=== PATIENT | male | born 1950 | race Caucasian/White ===

== ENCOUNTER 2016-05-27 11:29 | Emergency (ER) | payer MEDICARE ==
[~2016-05-27] VITALS: Ht 182.9 cm; Wt 110.0 kg
[~2016-05-27 11:29] MED LIST: COUM5TAB PO; LOTE20TA3 PO; ROSU5 PO; [UNRECOGNIZED DRUG - CODE] PO
[2016-05-27 11:47] VITALS: BP 173/87; PULSE 63; RESP 18; TEMP 97.7; O2SAT 97
[2016-05-27] MEDS ORDERED: CYCL1TAB29 PO (11:54)
[2016-05-27] MEDS ORDERED: PRED1 PO (11:54)
[2016-05-27] MEDS ORDERED: ATEN50TA7 PO (11:54)
[2016-05-27] MEDS ORDERED: LISI-519 PO (11:54)
[2016-05-27] MEDS ORDERED: WARF4TAB51 PO (11:54)
[2016-05-27] MEDS ORDERED: HYDROmorphone HCL PF 1 MG/ML VIAL IV PUSH ONE (12:00)
[2016-05-27] MEDS ORDERED: KETOROLAC TROMETHAMINE 30 MG/ML (IVP) VIAL IV PUSH ONE (12:00)
[2016-05-27] MEDS ORDERED: ONDANSETRON HCL 4 MG/2 ML VIAL IV PUSH ONE (12:00)
[2016-05-27] MEDS ORDERED: DEXAMETHASONE SOD PHOS 20 MG/5 ML VIAL IV PUSH ONE (12:00)
--- NOTE | 2016-05-27 12:19 | PD ---
HPI Chief Complaint: Back/ Neck Pain or Injury Time Seen by Provider: 12:15 Travel History International Travel<30 days: No Contact w/Intl Traveler<30days: No Traveled to known affect area: No History of Present Illness HPI 65-year-old male that presents to the ED for evaluation of lower back pain and muscle spasms. Per patient she's had this pain before. Per patient he hasn't had it for years. Per patient he was doing some work at home and it started gradually. Per patient is becoming more severe for the past couple of days. Per patient and Saturday he was so severe he had to go to an urgent care to get evaluated. Patient was given muscle relaxant as well as prednisone and states that he was hoping that he would get better but he has not. Per patient today became more severe. The patient any cough or movement causes the pain to be more severe. Denies any urinary or bowel movement issues. He does have a history of surgery to the lower back on his 30s and 40s. He denies any recent fall or injury. No radiation of the pain. Per patient the pain is most severe when it comes in spasms. Per patient it comes and goes. She denies any nausea or vomiting. No abdominal discomfort. No recent surgeries on his back. Per patient the pain at the moment is 10 out of 10 and he states that he normally has been worsening. PFSH Past Medical History Atrial Fibrillation: Yes High Cholesterol: Yes Diminished Hearing: No Hypertension: Yes Musculoskeletal: Yes (BACK PAIN) Tetanus Vaccination: > 5 Years Influenza Vaccination: Yes Past Surgical History Abdominal Surgery: Yes (HERNIA REPAIR) Cardiac Surgery: Yes (PACEMAKER) Pacemaker: Yes (1688TC/[address]) Social History Alcohol Use: Yes (4 X WEEK) Tobacco Use: No Substance Use: No Allergies-Medications (Allergen,Severity, Reaction): Coded Allergies: No Known Allergies (Verified , 05/27/16) Reported Meds & Prescriptions Reported Meds & Active Scripts Active Diclofenac Sodium DR (Diclofenac Sodium) 75 Mg Tabdr 75 Mg PO BID PRN Lortab (Hydrocodone-Acetaminophen) 5-325 Mg Tab 1 Tab PO Q6H PRN Robaxin (Methocarbamol) 750 Mg Tab 750 Mg PO QID PRN Reported Prednisone 1 Mg Tab 4 Mg PO DIRECTED Flexeril (Cyclobenzaprine HCl) 10 Mg Tab 10 Mg PO TID Atenolol-Chlorthalidone 50-25 Mg Tab 1 Tab PO DAILY Lisinopril 5 Mg Tab 5 Mg PO DAILY Warfarin 2 Mg Tab 2 Mg PO DAILY Review of Systems General / Constitutional: No: Fever, Chills, Weight Gain, Weight Loss, Other Eyes: No: Diploplia, Blurred Vision, Photophobia, Drainage, Redness, Foreign Body Sensation, Pain, Tearing, Blind Spots, Visual changes, Blindness, Other HENT: No: Headaches, Vertigo, Lightheadedness, Sore Throat, Rhinitis, Rhinorrhea, Congestion, Nosebleed, Neck Stiffness, Neck Pain, Masses, Gingival Bleeding, Dental Difficulties, Ear Discharge, Earache, Other Cardiovascular: No: Chest Pain or Discomfort, Palpitations, Irregular Rhythm, Tachycardia, Diaphoresis, Syncope, Dyspnea on exertion, Varicosities, Edema, Cyanosis, Varicosities, Phlebitis, Claudication, Other Respiratory: No: Cough, Shortness of Breath, Wheezing, Sneezing, Orthopnea, Hemoptysis, Stridor, Night Sweats, Pleuritic Pain, Other Gastrointestinal: No: Nausea, Vomiting, Diarrhea, Abdominal Pain, Hematemesis, Hematochezia, Constipation, Changes in Bowel Habits, Indigestion, Dysphagia, Loss of Appetite, Other Genitourinary: No: Urgency, Frequency, Dysuria, Nocturia, Hematuria, Decreased Urinary Output, Oliguria, Hesitancy, Dribbling, Incontinence, Pelvic Pain, Flank Pain, Dyspareunia, Discharge, Dysmenorrhea, Menorrhagia, Metorrhagia, Vaginal Bleeding, Other Musculoskeletal: Positive: Limited ROM, Pain, No: Myalgias, Arthralgias, Weakness, Cramping, Edema, Atrophy, Other Skin: No Rash, No Itching, No Dryness, No Lumps, No Hives, No Change in Pigmentation, No Change in nails, No Alopecia, No Lesions, No Breast Lumps, No Breast Tenderness, No Breast Swelling, No Other Neurologic: No: Weakness, Dizziness, Syncope, Focal Abnormalities, Coordination Problem, Tremor, Ataxia, Headache, Change in Mentation, Slurred Speech, Paresthesia, Incontinence, Seizures, Sensory Disturbance, Other Psychiatric: No: Anxiety, Depression, Suicidal Ideations, Disorder of Thought, Mood Disorder, Substance Abuse, Homicidal Ideation, Other Endocrine: No: Heat Intolerance, Cold Intolerance, Polyuria, Polydipsia, Other Hematologic/Lymphatic: No: Easy Bruising, Lymph Node Enlargement, Other Physical Exam Narrative GENERAL: SKIN: Warm and dry. HEAD: Atraumatic. Normocephalic. EYES: Pupils equal and round. No scleral icterus. No injection or drainage. ENT: No nasal bleeding or discharge. Mucous membranes pink and moist. Tongue is midline. No uvula deviation. NECK: Trachea midline. No JVD. CARDIOVASCULAR: Regular rate and rhythm. No murmurs, S3, S4. RESPIRATORY: No accessory muscle use. Clear to auscultation. Breath sounds equal bilaterally. GASTROINTESTINAL: Abdomen soft, non-tender, nondistended. Hepatic and splenic margins not palpable. MUSCULOSKELETAL: Extremities without clubbing, cyanosis, or edema. No obvious deformities. Full range of motion of the upper and lower extremities bilaterally. Patient is ambulatory but has pain with range of motion of the lower back. Patient does have reproducible pain on the lumbar spine. Also in the lumbar musculature. Straight leg test negative bilaterally. 2+ pulses in the lower extremities. NEUROLOGICAL: Awake and alert. No obvious cranial nerve deficits. Motor grossly within normal limits. Five out of 5 muscle strength in the arms and legs. Normal speech. PSYCHIATRIC: Appropriate mood and affect; insight and judgment normal. Data Data Last Documented VS Vital Signs Date Time Temp Pulse Resp B/P Pulse Ox O2 Delivery O2 Flow Rate FiO2 05/27/16 11:47 97.7 63 18 173/[address] Lumb Spine W/O Contrast (05/27/16 11:56) Ketorolac Inj (Toradol Inj) (05/27/16 12:00) Dexamethasone Inj (Decadron Inj) (05/27/16 12:00) Hydromorphone Pf Inj (Dilaudid Pf Inj) (05/27/16 12:00) Ondansetron Inj (Zofran Inj) (05/27/16 12:00) MDM Medical Decision Making Medical Screen Exam Complete: Yes Emergency Medical Condition: Yes Medical Record Reviewed: Yes Interpretation(s) Last Impressions Lumbar Spine CT 05/27/16 1156 Signed Impressions: Service Date/Time: Friday, May 27, 2016 12:34 - CONCLUSION: 1. Mild scoliosis. 2. Mild degenerative change involving the lower facets. Shawn Pablo MD Differential Diagnosis Fracture versus muscle spasm versus muscle strain versus acute on chronic pain versus chronic pain versus sciatica Narrative Course 65-year-old male that presents to the ED for evaluation of lower back pain. Patient was properly examined and was found to have signs and symptoms consistent appears to be muscle scale pain. Per patient's symptoms have been worsening. She has had surgery in the past has had no issues for years. Neurovascularly intact on exam. At this time I recommend imaging and IV pain medications. Patient is agreeable with this plan. Imaging showed chronic changes but no sign of acute disease. Patient was reassured. From history and physical this appears to be related to muscle scalp pain. Patient did have relief from medications given. After assessing the medications they were given to him patient was given low dose of medications. Recommend changing any medications at this time as this does not appear to be working. Patient was given prednisone 20 mg twice a day for 5 days. Patient was given diclofenac sodium as well. Given prescription for amoxicillin to cover for dental infection as he did complain of some right lower jaw pain, this appears to be a dental infection. Patient was also given Robaxin. He was also given Lortab to use only if severe pain. Patient agrees with plan. Patient was told to follow up with PCP. See ED for any worsening symptoms. Diagnosis Primary Impression: Muscle spasm of back Additional Impression: Dentalgia Patient Instructions: General Instructions, Narcotic given in the ED Additional Instructions: Take medications as prescribed. Follow-up with PCP. See ED for any worsening symptoms. Do not drink or drive while taking pain medication. Apply ice or heat as needed for pain Med/Other Pt SpecificInfo: Prescription(s) given Scripts Amoxicillin 875 Mg Dvn565 Mg PO BID 10 Days Prov:Morgan Cueto MD 05/27/16 Prednisone 20 Mg Tab20 Mg PO BID #10 TAB Prov:Morgan Cueto MD 05/27/[address] 75 Mg Tabdr75 Mg PO BID PRN (PAIN SCALE 1 TO 10) #20 TAB Prov:Morgan Cueto MD 05/27/16 Hydrocodone-Acetaminophen (Lortab)5-325 Mg Tab1 Tab PO Q6H PRN (PAIN) #20 TAB Prov:Morgan Cueto MD 05/27/16 Methocarbamol (Robaxin)750 Mg Dih070 Mg PO QID PRN (PAIN SCALE 1 TO 10) #20 TAB Prov:Morgan Cueto MD 05/27/16 Disposition: 01 DISCHARGE HOME Condition: Stable Shyam Hyman May 27, 2016 12:19
--- NOTE | 2016-05-27 13:12 | RADHPO ---
EXAM DATE/TIME: 05/27/2016 12:34 [facility] COMPARISON: No previous studies available for comparison. INDICATIONS : Lower back spasms. RADIATION DOSE: 40.00 CTDIvol (mGy) MEDICAL HISTORY : Cardiovascular disease. Hypertension. SURGICAL HISTORY : Pacemaker. ENCOUNTER: Initial ACUITY: 3 days PAIN SCALE: 6/10 LOCATION: Bilateral lower back. TECHNIQUE: Volumetric scanning of the lumbar spine was performed. Multiplanar reconstructions in the sagittal, coronal and oblique axial planes were performed. Using automated exposure control and adjustment of the mA and/or kV according to patient size, radiation dose was kept as low as reasonably achievable t o obtain optimal diagnostic quality images. FINDINGS: VERTEBRAE: Normal vertebral body height. There is mild disc space narrowing at the L5-S1 level. There is a mild scoliosis. ALIGNMENT: No evidence of subluxation. T12-L1: The thecal sac has a normal diameter. No evidence of disc bulge or protrusion. The neural foramina are patent bilaterally. There is small round low-attenuation appearance cyst in the left kidney. L1-L2: The thecal sac has a normal diameter. No evidence of disc bulge or protrusion. The neural foramina are patent bilaterally. L2-L3: The thecal sac has a normal diameter. No evidence of disc bulge or protrusion. The neural foramina are patent bilaterally. L3-L4: The thecal sac has a normal diameter. No evidence of disc bulge or protrusion. The neural foramina are patent bilaterally. L4-L5: The thecal sac has a normal diameter. No evidence of disc bulge or protrusion. The neural foramina are patent bilaterally. There are mild degenerative changes involving the facets. L5-S1: The thecal sac has a normal diameter. No evidence of disc bulge or protrusion. The neural foramina are patent bilaterally. There are mild degenerative changes involving facets. CONCLUSION: 1. Mild scoliosis. 2. Mild degenerative change involving the lower facets. Shawn Pablo MD on May 27, 2016 at 13:08 Board Certified Radiologist. This report was verified electronically.
[2016-05-27] MEDS ORDERED: HYDR-3533 PO (13:25)
[2016-05-27] MEDS ORDERED: ROBA750T PO (13:25)
[2016-05-27] MEDS ORDERED: DICL75TA PO (13:25)
[2016-05-27] MEDS ORDERED: PRED20 PO (13:25)
[2016-05-27] MEDS ORDERED: AMOX875T PO (13:27)
== END 2016-05-27 13:44 | disposition home or self-care (01) ==
LOC: PHEFT 11:29
DX: M62.830 Muscle spasm of back (principal); K08.89 Other specified disorders of teeth and supporting structures; I10 Essential (primary) hypertension; E78.00 Pure hypercholesterolemia, unspecified; Z95.0 Presence of cardiac pacemaker; Z87.39 Personal history of other diseases of the musculoskeletal system and connective tissue; Z86.79 Personal history of other diseases of the circulatory system
CPT/HCPCS: 72131; 96374; 96375; 99283; J1100; J1170; J1885; J2405